=== PATIENT | male | born 1960 | race American Indian/Alaskan Native ===

== ENCOUNTER 2022-06-18 08:58 | Emergency (ER) | payer BC ==
[2022-06-18] MEDS ORDERED: SODIUM CHLORIDE 0.9% 1000 ML 1,000 ML IV ONE (10:13)
--- NOTE | 2022-06-18 10:20 | Emergency Department Report ---
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 Patient reported that she fell really hot from inside and went to sit down and counter lean forward to get himself cool down and that was the last thing he remembered. According to bystanders patient did not fall from the seats. Patient also reported that he was able to walk to the bed. Patient denies any past medical history of heart disease or lung disease. He said all was well this morning before the symptoms started. No other modifying or associated factors reported. - Related Data Allergies/Adverse Reactions: Allergies No Known Allergies Allergy (Verified 06/18/22 09:31) ED Review of Systems ROS: Stated complaint: OVER HEAT IN WORK AREA Other details as noted in HPI Comment: All other systems reviewed and negative Respiratory: denies: shortness of breath Cardiovascular: syncope. denies: chest pain, palpitations ED Past Medical Hx - Past Medical History Previous Medical History?: No - Social History Smoking Status: Never Smoker Substance Use Type: None ED Physical Exam - General Limitations: No Limitations General appearance: alert, in no apparent distress - Head Head exam: Present: normal inspection - Eye Eye exam: Present: normal appearance Pupils: Present: normal accommodation - ENT ENT exam: Present: normal exam, normal orophraynx, mucous membranes moist - Neck Neck exam: Present: normal inspection, full ROM. Absent: tenderness - Respiratory Respiratory exam: Present: normal lung sounds bilaterally. Absent: respiratory distress, chest wall tenderness, accessory muscle use - Cardiovascular Cardiovascular Exam: Present: regular rate, normal rhythm, normal heart sounds - GI/Abdominal GI/Abdominal exam: Present: soft, normal bowel sounds. Absent: distended, tenderness - Extremities Exam Extremities exam: Present: normal inspection, normal capillary refill. Absent: tenderness - Back Exam Back exam: Absent: tenderness - Neurological Exam Neurological exam: Present: alert, oriented X3 - Psychiatric Psychiatric exam: Present: normal affect, normal mood - Skin Skin exam: Present: warm, intact ED Course Vital Signs 06/18/22 06/18/22 06/18/22 09:04 09:15 09:26 Temperature 99.5 F Pulse Rate 80 78 Respiratory 22 20 Rate Blood Pressure 161/96 161/96 O2 Sat by Pulse 92 95 Oximetry 06/18/22 06/18/22 06/18/22 09:31 09:45 10:01 Temperature Pulse Rate 87 81 81 Respiratory 18 22 17 Rate Blood Pressure 161/96 161/96 145/87 O2 Sat by Pulse 95 97 95 Oximetry 06/18/22 06/18/22 06/18/22 10:15 10:31 10:45 Temperature Pulse Rate 73 73 76 Respiratory 24 18 26 H Rate Blood Pressure 145/87 145/87 145/87 O2 Sat by Pulse 94 96 96 Oximetry 06/18/22 06/18/22 06/18/22 11:01 11:15 11:31 Temperature Pulse Rate 73 75 70 Respiratory 25 H 22 21 Rate Blood Pressure 162/96 162/96 162/96 O2 Sat by Pulse 97 98 97 Oximetry 06/18/22 06/18/22 11:45 12:01 Temperature Pulse Rate 68 73 Respiratory 18 23 Rate Blood Pressure 162/96 167/99 O2 Sat by Pulse 96 98 Oximetry - Reevaluation(s) Reevaluation #1: 06/18/22 10:20 here with presyncope episode with no medical history -- this is likely heat related -- so will start ivf ns 1L bolus x 1 and order routine cardiac workup-- Reevaluation #2: 06/18/22 12:16 noted with unremarkable labs except minimally low Na 136 and slightly elevated creatinine 1.3 that could be as a result of dehydration-- pt has been hydrated well with ivf ns 1L bolus x 1-- ED Medical Decision Making - Lab Data Result diagrams: 06/18/22 10:24 06/18/22 10:24 - EKG Data -: EKG Interpreted by Ia EKG shows normal: sinus rhythm Rate: normal - EKG Data 06/18/22 10:22 Noted with normal sinus rhythm at a rate of 79 bpm, with possible left ventricular hypertrophy in no ST elevation or depression in this abnormal ECG. Critical care attestation.: If time is entered above; I have spent that time in minutes in the direct care of this critically ill patient, excluding procedure time. ED Disposition Clinical Impression: Pre-syncope Disposition: 01 HOME / SELF CARE / HOMELESS Is pt being admited?: No Does the pt Need Aspirin: No Condition: Stable Instructions: Near-Syncope, [id number] Additional Instructions: Increase your daily fluid to help your hydration Avoid extreme heat or cold to prevent recurrent of your symptoms Call and schedule follow-up with your primary doctor in the next 3 to 5 days for progress Please do not hesitate to call or return to emergency room if your symptoms worsen Referrals: JOSE JUAN MONTIEL MD [Referring] - 3-5 Days Time of Disposition: 12:18
[2022-06-18 11:03] LABS: Hematocrit 42.8 % (35.5-45.6); Hemoglobin 14.2 gm/dl (11.8-15.2); Mean Corpuscular HGB Conc 33 % (32-34); Mean Corpuscular Volume 89 fl (84-94); Platelet Count 218 K/mm3 (140-440); Red Blood Count 4.79 M/mm3 (3.65-5.03); Red Cell Distribution Width 14.1 % (13.2-15.2)
[2022-06-18 11:12] LABS: INR 0.87 (0.87-1.13)
[2022-06-18 11:40] LABS: Alanine Aminotransferase 31 units/L (7-56); Albumin 4.1 g/dL (3.9-5); BUN/Creatinine Ratio 13; Blood Urea Nitrogen 20 mg/dL (9-20); Calcium 9.5 mg/dL (8.4-10.2); Hemolysis Index 62
[2022-06-18 12:36] LABS: Basophils % (Manual) 0 % (0.0-1.8); Eosinophils % (Manual) 0 % (0.0-4.3); Platelet Estimate Consistent w Auto; RBC Morphology Normal; Total Cells Counted 100
[2022-06-18 13:42] VITALS: BP 166/91
--- NOTE | 2022-06-18 16:55 | Electrocardiograph Report ---
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
== END 2022-06-18 13:42 | disposition home or self-care (01) ==
LOC: ED 08:58
DX: R55 Syncope and collapse (principal)
CPT/HCPCS: 36415; 80053; 83735; 83880; 84484; 85007; 85025; 85610; 93005; 96360; 99283; J7030